=== PATIENT | female | born 2000 | race African-American/Black ===

== ENCOUNTER 2024-03-22 10:43 | Emergency (ER) | payer OTHER, SELFPAY ==
[2024-03-22 10:47] VITALS: BP 146/99; PULSE 106; TEMP 36.6; O2SAT 100; BMI 36.5
[2024-03-22] MEDS: ONDANSETRON PF 4 MG/2 ML VIAL IV (11:06)
[2024-03-22] MEDS: 0.9 % SODIUM CHLORIDE 1,000 ML 999 ML IV (11:06)
[2024-03-22] MEDS: KETOROLAC TROMETHAMINE 30 MG/ML VIAL 15 MG IVP (11:31)
[2024-03-22 12:01] VITALS: BP 149/83; PULSE 88; TEMP 36.8; O2SAT 98
--- NOTE | 2024-03-22 14:39 | ED.NAVMDI1 ---
HPI - Nausea/Vomiting/Diarrhea General Chief complaint: Nausea/Vomiting/Diarrhea Stated complaint: NAUSEA/VOMITING, DIARRHEA Time Seen by Provider: 03/22/24 11:05 Source: patient Mode of arrival: walk-in History of Present Illness HPI Narrative: Patient presented to us with nausea vomiting and diarrhea that started yesterday, patient has been exposed to her kids who had similar symptoms last week She denies any difficulty breathing , and she denies any cough or any fever Related Data Previous Rx's ?Medication ?Instructions ?Recorded ondansetron 4 mg disintegrating 4 mg PO Q8H PRN nausea and 03/22/24 tablet vomiting 3 days #10 tabs Allergies Allergy/AdvReac Type Severity Reaction Status Date / Time No Known Drug Allergies Allergy Verified 03/22/24 10:53 Review of Systems ROS Status of ROS 10 or more systems reviewed and unremarkable except as noted in history and below PFSH PFSH Social History Little interest or pleasure in doing things: not at all Feeling down, depressed, or hopeless: not at all Exam Narrative Exam Narrative: Nurses notes and vital signs reviewed and patient is not hypoxic. General: Well-appearing and in no apparent distress. Skin: Warm, dry, no pallor noted. No rash. Head: Normocephalic, atraumatic. Neck: Supple, non-tender. Eye: Pupils are equal, round and EOMI. No scleral icterus. Ears, Nose, Mouth, and Throat: TM are clear, no nasal mucosal hypertrophy. Oral mucosa is moist, no posterior oropharynx erythema, uvula is mid-line Cardiovascular: Regular Rate and Rhythm without murmur, gallop or rub. Respiratory: No accessory muscle use or respiratory distress. Lungs are clear to auscultation, no wheezing, rales or rhonchi Chest Wall: no tenderness Back: No midline thoracic or lumbar vertebral tenderness. No CVA tenderness Musculoskeletal: normal ROM, no calf or popliteal tenderness, no lower extremity edema/swelling GI: Abdomen is soft, non-distended. Normal bowel sounds. No masses appreciated. No tenderness to palpation. No rebound, guarding, or rigidity noted. Neurological: A&O x4. No cranial nerve dysfunction observed. No truncal ataxia. Moves all extremities. Sensation intact. Psychiatric: Cooperative and interactive. Normal mood and affect. Constitutional Vital Signs, click to edit/add: Last Vital Signs Temp 98.3 F 03/22/24 12:01 Pulse 88 03/22/24 12:01 Resp 18 03/22/24 12:01 BP 149/83 H 03/22/24 12:01 Pulse Ox 98 03/22/24 12:01 O2 Del Method Room Air 03/22/24 12:01 Course Vital Signs Vital signs: Vital Signs Temperature 98 F 03/22/24 10:47 Pulse Rate 106 H 03/22/24 10:47 Respiratory Rate 20 03/22/24 10:47 Blood Pressure 146/99 H 03/22/24 10:47 Pulse Oximetry 100 03/22/24 10:47 Oxygen Delivery Method Room Air 03/22/24 10:47 Temperature 98.3 F 03/22/24 12:01 Pulse Rate 88 03/22/24 12:01 Respiratory Rate 18 03/22/24 12:01 Blood Pressure 149/83 H 03/22/24 12:01 Pulse Oximetry 98 03/22/24 12:01 Oxygen Delivery Method Room Air 03/22/24 12:01 MDM - Nausea/Vomiting/Diarrhea MDM Narrative Medical decision making narrative: Patient provided with IV fluids in addition to Zofran and Toradol Discharged home with supportive care Patient presenting mostly with gastroenteritis likely secondary to viral illness The patient is to follow up with primary care physician in next 2-3 days or to return to the emergency department should any of the signs or symptoms worsen or new symptoms develop. The patient agrees with the following Diagnosis and Treatment plan and the patient will be discharged home. Discharge Plan Discharge Chief Complaint: Nausea/Vomiting/Diarrhea Clinical Impression: Gastroenteritis Patient Disposition: Home, Self-Care Time of Disposition Decision: 11:31 Condition: Good Prescriptions / Home Meds: New ondansetron 4 mg tablet,disintegrating 4 mg PO Q8H PRN (Reason: nausea and vomiting) 3 Days Qty: 10 0RF Print Language: Cymro Instructions: Gastroenteritis (DC) Referrals: Physician,Non-Staff, MD [Primary Care Provider] - 1 week Discharge Date/Time: 03/22/24 12:02
== END 2024-03-22 12:02 | disposition home or self-care (01) ==
PROVIDERS: Emergency Provider Emergency Medicine
DX: K52.9 Noninfective gastroenteritis and colitis, unspecified (principal)
CPT/HCPCS: 96361; 96374; 96375; 99284; J1885; J2405

== ENCOUNTER 2024-03-22 21:04 | Emergency (ER) | payer OTHER, SELFPAY ==
[2024-03-22] VITALS (16 sets, daily range): BP systolic 129–172; BP diastolic 75–112; PULSE 60–84; TEMP 37.3; O2SAT 94–100; BMI 36.5
--- OUTSIDE RECORDS SUMMARY | 2024-03-22 21:15 | XMS_ITS | CCD ---
Author Organization [facility] Care Team Providers Care Dock Operations Supervisor Name Role Phone Unallocated , Precious Provider Primary Care Provi hunter CORNELIUS DANIELSON Attending Unavailable CORNELIUS DANIELSON Attending Unavailable CORNELIUS DANIELSON Attending Unavailable CORNELIUS DANIELSON Referring Unavailable Medications Current Medications Medication Drug Class(es) Dates Sig (Normalized) Sig (Original) Levonorgestrel (6 sources) Progestin, Progestin-containing Intrauterine Device Start: 02-05-2024 Levonorgestrel (LILETTA, 52 MG, IU) by Intrauterine route 02/05/2024 Active Start: 02-05-2024 End: 02-05-2024 Levonorgestrel intrauterine device 52 mL Start: 02-05-2024 End: 02-05-2024 Once PRN Procedure, Starting on Sat02/05/24 at 1315, For 1 dose Problems Problem Classification Problem Date Documented Da te Episodic/Chronic Contraceptive and procreative management (5 sources) Patient encounter status; Translations: [Encounter for other general counseling and advice on contraception] 01-01-2024 Episodic Results Test Name Value Interpretation Reference Range Facil ity HCG ( test) Ql (U)o n 02-05-2024 Preg Test, Ur Negative Negative [facility]UD Insertionon 02-05-2024 Cornelius Danielson MD 02/05/2024 1:47 PM IUD Insertion Performed by: Cornelius Danielson MD Authorized by: Cornelius Danielson MD Procedure: IUD insertion risk: reasonably certain the patient is not Date/Time of Insertion: 02/05/2024 1:37 PM Speculum placed in vagina: yes Cervix cleaned and prepped: yes Tenaculum/Allis/Ring Forceps applied to cervix: yes Anesthesia used: no Uterus sound depth (cm): 8 Cervix manually dilated: no IUD inserted without complications: yes OSM: Levonorgestrel 20.1 MCG/DAY Patient tolerated procedure well: yes [facility] Signs Date Time Vital Sign Value Performing Clinician Garry donaldson 03-17-2024 14:41-0500 Body weight 105.23 kg Cornelius Danielson MD Work Phone: [facility] 03-17-2024 14:41-0500 Diastolic blood pressure 82 mm[Hg] Cornelius Danielson MD Work Phone: [facility] 03-17-2024 14:41-0500 Systolic blood pressure 124 mm[Hg] Cornelius Danieslon MD Work Phone: [facility] 02-05-2024 13:21-0500 Diastolic blood pressure 80 mm[Hg] Cornelius Danielson MD Work Phone: [facility] 02-05-2024 13:21-0500 Systolic blood pressure 138 mm[Hg] Cornelius Danielson MD Work Phone: [facility] 01-02-2024 11:48-0500 Body weight 109.32 kg Cornelius Danielson MD Work Phone: [facility] 01-02-2024 11:48-0500 Diastolic blood pressure 86 mm[Hg] Cornelius Danielson MD Work Phone: [facility] 01-02-2024 11:48-0500 Systolic blood pressure 124 mm[Hg] Cornelius Danielson MD Work Phone: [facility] Healthcare Encounters Encounter Date Encounter Type Care Provider Facility Start: 03-17-2024 End: 03-17-2024 Office outpatient visit 15 minutes Cornelius Danielson MD Work Phone: [facility] Comment on above: Intrauterine device surveillance Start: 03-17-2024 End: 03-17-2024 ambulatory CORNELIUS DANIELSON Not Available Start: 03-17-2024 End: 03-17-2024 Bamboo flowsheet Cornelius Danielson MD Work Phone: [facility] Start: 03-17-2024 End: 03-17-2024 Bamboo flowsgrant Danielson MD Work Phone: [facility] Start: 02-05-2024 End: 02-05-2024 ambulatory CORNELIUS DANIELSON Not Available Start: 02-05-2024 End: 02-05-2024 Patient encounter procedure Cornelius Danielson MD Work Phone: [facility] Comment on above: Encounter for IUD in sertion Start: 01-23-2024 End: 01-23-2024 Telephone encounter Cornelius Danielson MD Work Phone: [facility] Start: 01-02-2024 End: 01-02-2024 Bamboo rosalinda Danielson MD Work Phone: [facility] Start: 01-02-2024 End: 01-02-2024 Derik Danielson MD Work Phone: [facility] Start: 01-02-2024 End: 01-02-2024 ambulatory CORNELIUS DANIELSON Not Available Start: 01-02-2024 End: 01-02-2024 Initial preventive medicine new pt age 18-39yrs Cornelius Danielson MD Work Phone: [facility] Comment on above: Well woman exam with routine gynecological exam; control counseling Start: 01-02-2024 End: 01-02-2024 Patient encounter procedure Cornelius Danielson MD Work Phone: [facility] Healthcare Procedures Date Procedure Procedure Detail Performing Clinician Start: 02-05-2024 Urine test visual color cmprsn meths Cornelius Danielson MD Work Phone: Start: 02-05-2024 IUD INSERTION Cornelius sarkar MD Work Phone: Plan of Treatment Date Care Activity Detail Author Start: 03-17-2024 End: 03-17-2024 Patient encounter procedure [facility] Comment on above: Intrauterine device surveillance Start: 02-05-2024 End: 02-05-2024 Patient encounter procedure 02/05/2024 1:15 PM EST Procedure Visit [facility] [address] [place] [address] Cornelius Danielson MD [address] [facility] [address] [address] [place] [address] [facility] Start: 01-23-2024 End: 01-23-2024 Patient encounter procedure 01/23/2024 1:15 PM EST Procedure Visit [facility] [address] [place] [id number] Cornelius Danielson MD [address] [facility] [address] [place] [address] [facility] Start: 10-20-2023 Influenza vaccination Influenza Vacc ine (#1) [facility] Healthcare Payers Date Payer Category Payer Private Health Insurance [id number] 2023 Private Health Insurance [id number] 2001 Unknown [id number] 2001 Unknown [id number] 2001 Unknown [id number] Social History Date Type Detail Facility Start: 01-02-2024 Tobacco smoking stat [facility] Never smoked tobacco [facility] Start: 01-02-2024 Tobacco use and exposure Smoke less tobacco non-user [facility] Start: 01-02-2024 End: 03-17-2024 Alcoholic beverage intake Ex-drinker (finding) [facility] Start: 01-02-2024 End: 03-17-2024 History of Social function [facility] Start: 01-02-2024 End: 03-17-2024 Tobacco use panel [facility] Start: 2000 Sex assigned at Not on file [facility] Clinical Notes 01-02-2024 to 03-17-2024 Cornelius Danielson MD - 03/17/2024 2:30 PM Mychal Ivory MA - 02/05/2024 1:15 PM Steven Danielson MD - 02/05/2024 1:15 PM ESTTelephone Encounter - Blanca Ayers - 01/23/2024 2:27 PM EST Note Date & Type Note Facility 03-17-2024 History of Presen t illness Narrative Images from the original note were not included. Cornelius Danielson MD Obstetrics and Gynecology Patient: Trevor Funk, : 2000 (24 y.o.) DOS 03/17/24 Exam Date: 03/17/2024 HPI: Pleased with IUD. No issues. She requests the string be trimmed as her partner can feel it Visit Vitals BP 124/82 Wt 232 lb LMP 02/23/2024 OB Status Having periods Smoking Status Never OB History Para Term AB Living 5 3 3 0 0 3 SAB IAB Ectopic Multiple Live Births 0 0 0 0 3 # Outcome Date GA Lbr Gary/2nd Weight Sex Type Anes PTL Lv 5 4 3 Term 2 Term 1 Term Obstetric Comments Pap: Up to date/no abnormal Liletta IUD-02/10; every month, normal blood loss, LMP: 02/23/24 Medication and Allergies Medication Documentation Review Audit Reviewed by Blanca Ivory MA (Bun Panner) on 03/17/24 at 1444 Medication Order Taking? Sig Documenting Provider Last Dose Status Levonorgestrel (LILETTA, 52 MG, IU) [id number] by Intrauterine route Cornelius Danielson MD Active No Known Allergies History reviewed. No pertinent past medical history. Past Surgical History: Procedure Laterality Date VAGINAL DELIVERY x3 Physical Exam: Objective Physical Exam Constitutional: Appearance: Normal appearance. Genitourinary: Vulva normal. No vaginal discharge or bleeding. No cervical lesion. IUD strings visualized. Cervical exam comments: IUD string trimmed at the ext os. Pulmonary: Effort: Pulmonary effort is normal. Abdominal: Palpations: Abdomen is soft. Neurological: Mental Status: She is alert. Associated Treatments and Results - ICD-10-CM 1. Intrauterine device surveillance Z30.431 Assessment/Plan No orders of the defined types were placed in this encounter. documented in this encounter [facility] 02-05-2024 History of Presen t illness Narrative Associated Order(s): IUD Insertion Post-Procedure Diagnose(s): Encounter for IUD insertion Images from the original note were not included. Patient ID: Trevor Calderon is a 23 y.o. female. IUD Insertion Performed by: Cornelius Danielson MD Authorized by: Cornelius Danielson MD Procedure: IUD insertion OSM: 52 mL Levonorgestrel 20.1 MCG/DAY Associated Order(s): IUD Insertion Post-Procedure Diagnose(s): Encounter for IUD insertion Images from the original note were not included. Patient ID: Trevor Calderon is a 23 y.o. female. IUD Insertion Performed by: Cornelius Danielson MD Authorized by: Cornelius Danielson MD Procedure: IUD insertion risk: reasonably certain the patient is not Date/Time of Insertion: 02/05/2024 1:37 PM Speculum placed in vagina: yes Cervix cleaned and prepped: yes Tenaculum/Allis/Ring Forceps applied to cervix: yes Anesthesia used: no Uterus sound depth (cm): 8 Cervix manually dilated: no IUD inserted without complications: yes OSM: Levonorgestrel 20.1 MCG/DAY Patient tolerated procedure well: yes Intended removal date: 8 years documented in this encounter [facility] 01-23-2024 Telephone encount er Note Pt called in upset that her appointment had to be rescheduled with [facility] because she came in over 30 minutes late today and wanted first available appointment with any provider for IUD insertion. I rescheduled for 02/05/24 with [facility] but she said she was going to call the [place] office to see if they have anything sooner. [facility] 01-23-2024 Miscellaneous Notes Formattin g of this note might be different from the original. Pt called in upset that her appointment had to be rescheduled with [facility] because she came in over 30 minutes late today and wanted first available appointment with any provider for IUD insertion. I rescheduled for 02/05/24 with [facility] but she said she was going to call the [place] office to see if they have anything sooner. documented in this encounter [facility] 01-02-2024 History of Presen t illness Narrative Images from the original note were not included. Cornelius Danielson MD Obstetrics and Gynecology Patient: Trevor Calderon, : 2000 (23 y.o.) DOS 01/02/24 Exam Date: 01/02/2024 HPI: Establishing care. She moved here from [place]. She is 2 mos PP from term . She wants to get an IUD Visit Vitals BP 124/86 Wt 241 lb LMP 12/23/2023 OB Status Having periods Smoking Status Never OB History Para Term AB Living 5 3 3 0 0 3 SAB IAB Ectopic Multiple Live Births 0 0 0 0 3 # Outcome Date GA Lbr Gary/2nd Weight Sex Type Anes PTL Lv 5 4 3 Term 2 Term 1 Term Obstetric Comments Pap: Up to date/no abnormal No control; every month, normal blood loss, LMP: 12/23/23 Medication and Allergies Medication Documentation Review Audit Reviewed by Blanca Ivory MA (Bun Panner) on 01/02/24 at 1150 Medication Order Taking? Sig Documenting Provider Last Dose Status No Medications to Display No Known Allergies History reviewed. No pertinent past medical history. Past Surgical History: Procedure Laterality Date VAGINAL DELIVERY x3 Physical Exam: Objective Physical Exam Constitutional: Appearance: Normal appearance. Genitourinary: Vulva normal. No vaginal discharge or bleeding. Right Adnexa: not palpable. Left Adnexa: not palpable. No cervical lesion. Uterus is not enlarged or tender. Breasts: Right: Normal. Left: Normal. Pulmonary: Effort: Pulmonary effort is normal. Abdominal: Palpations: Abdomen is soft. Neurological: Mental Status: She is alert. Associated Treatments and Results - ICD-10-CM 1. Well woman exam with routine gynecological exam Z01.419 2. control counseling Z30.09 Assessment/Plan No orders of the defined types were placed in this encounter. documented in this encounter [facility] 01-02-2024 Miscellaneous Notes Addended by: CORNELIUS DANIELSON on: 01/02/2024 12:06 PM Modules accepted: Level of Service documented in this encounter [facility] 01-02-2024 Note Addended by: CORNELIUS DANIELSON on: 01/02/2024 12:06 PM Modules accepted: Level of Service [facility] 01-02-2024 Note Addended by: CORNELIUS DANIELSON on: 01/02/2024 12:06 PM Modules accepted: Level of Service [facility] Evaluation note Diagnosis Well woman exam with routine gynecological exam Routine gynecological examination control counseling documented in this encounter [facility] HealthcareEvaluation note* Diagnosis Encounter for IUD insertion Insertion of intrauterine contraceptive device documented in this encounter [facility] Healthcare[facility] note* Diagnosis Intrauterine device surveillance documented in this encounter [facility] HealthcareReason for visit Narrative* OBGYN (Routine) - Closed Specialty Diagnoses / Procedures Referred By Contac t Referred To Contact Obstetrics and Gynecology Diagnoses Encounter for insertion of intrauterine contraceptive device Procedures MA LEVONORGESTREL IU 52MG 8 YR MA INSERTION INTRAUTERINE DEVICE IUD Cornelius Danielson MD [address] [facility] [address] [place] [address] Phone: tel: fax: Cornelius Danielson MD [address] [facility] [address] [place] [address] Phone: tel: fax: Referral ID Status Reason Start Date Expiration Date V isits Requested Visits Authorized [id number] Closed Perform Procedure 01/02/2024 06/30/2024 1 1 [facility] Summary Purpose Family History No Family History Records Found Advance Directives No Advanced Directives Records Found Additional Source Comments Care Teams (unrecognized sec tion and content) Dock Operations Supervisor Relationship Specialty Start Date End Date Unallocated, Precious Marie MD [address] [place] [address] PCP - General Family Medicine 01/02/24 Dock Operations Supervisor Relationship Specialty Start Date End Date Unallocated, Precious Marie MD [address] [facility] [address] PCP - General Family Medicine 01/02/24 Dock Operations Supervisor Relationship Specialty Start Date End Date Unallocated, Precious Marie MD [address] [facility] [place] [address] PCP - General Family Medicine 01/02/24 Dock Operations Supervisor Relationship Specialty Start Date End Date Unallocated, Precious Marie MD [address] [facility] [place] [address] PCP - General Family Medicine 01/02/24 INFORMATION SOURCE (unrecogn ized section and content) DATE CREATED AUTHOR 03/19/2024 [facility] EPIC FOR RECORDS PERTAINING TO PATIENTS WHO ARE OR HAVE BEEN ENROLLED IN A CHEMICAL DEPENDENCY/SUBSTANCEABUSE PROGRAM, SOME INFORMATION MAY BE OMITTED. This clinical summary was aggregated from multiple sources. Caution should be exercised in using it in the provision of clinical care. This summary normalizes information from multiple sources, and as a consequence, information in this document may materially change the coding, format and clinical context of patient data. In addition, data may be omitted in some cases. CLINICAL DECISIONS SHOULD BE BASED ON THE PRIMARY CLINICAL RECORDS. [employer] provides no warranty or guarantee of the accuracy or completeness of information in this document.
--- NOTE | 2024-03-22 21:25 | CT_ITS ---
The [address] [address] Patient Name: TREVOR HARRIS MRN: [id number] date: 2000 Sex: F Assigned Patient Location: ER Current Patient Location: ER Accession/Order Number: [id number] Exam Date: 03/22/2024 22:35 Report Date: 03/22/2024 23:47 At the request of: CONSTANTIN SANZ Procedure: CT abdomen pelvis w con EXAM: CT abdomen pelvis w con HISTORY: 10/28 intractable pain COMPARISON: None. TECHNIQUE: Axial CT images through the abdomen and pelvis were obtained after the intravenous administration of contrast. Coronal and sagittal reformats were obtained. Dose reduction techniques were achieved by using automated exposure control and/or adjustment of mA and/or kV according to patient size and/or use of iterative reconstruction technique. FINDINGS: The visualized portions of the lung bases are clear. Abdomen: The liver and spleen enhance homogeneously without focal lesion. There is no intra or extrahepatic biliary duct dilatation. There is cholelithiasis without evidence of acute inflammation. The pancreas, adrenal glands, kidneys, and bowel loops, including the appendix, are unremarkable. There is no mesenteric or retroperitoneal lymphadenopathy. Pelvis: The bladder demonstrates wall thickening. The rectum is unremarkable. There is no iliac or inguinal lymphadenopathy. An IUD is in place. There are suspected small ovarian follicles. Bone windows show no aggressive osseous lesions. There is sclerosis about the sacroiliac joints with some erosive changes. CT/CT abdomen pelvis w con IMPRESSION: 1. Cholelithiasis without evidence of acute inflammation. 2. Normal appendix. 3. Urinary bladder wall thickening. Please correlate with urinalysis for infection. 4. An IUD is in place. 5. Sclerosis about the sacroiliac joints with some erosive changes. Please correlate for an infectious or inflammatory sacroiliitis. Electronically authenticated by: Magdi PATEL Date: 03/22/2024 23:47
[2024-03-22] MEDS: 0.9 % SODIUM CHLORIDE 1,000 ML 1000 ML IV (21:58)
[2024-03-22] MEDS: KETOROLAC TROMETHAMINE 30 MG/ML VIAL 15 MG IVP (21:59)
[2024-03-22] MEDS: DICYCLOMINE HCL 20 MG/2 ML VIAL IM (21:59)
[2024-03-22] MEDS: ONDANSETRON PF 4 MG/2 ML VIAL IV (22:06)
[2024-03-22 22:14] LABS: Alanine Aminotransferase 20 U/L (14-59); Albumin Globulin Ratio 0.8; Albumin Level 3.3 g/dL (3.4-5.0); Alkaline Phosphatase 88 U/L (46-116); Anion Gap 11.5; Aspartate Amino Transferase 17 U/L (15-37); BUN Creatinine Ratio 8.8; Bilirubin Total 0.4 mg/dL (0.2-1.0); Calcium 8.7 mg/dL (8.5-10.1); Carbon Dioxide 26.9 mmol/L (21.0-32.0); Chloride 101 mmol/L (98-107); Estimated GFR (African America >60 (>=60 mL/min/1.73m^2); Estimated GFR (Non-African Ame 53 (>=60 mL/min/1.73m^2); Globulin 4.3 g/dL; Glucose 111 mg/dL (74-106); Magnesium 1.8 mg/dL (1.8-2.4); Potassium 3.4 mmol/L (3.5-5.1); Sodium 136 mmol/L (136-145); Total Protein 7.6 g/dL (6.4-8.2)
[2024-03-23] VITALS: BP 135/76; O2SAT 92
--- NOTE | 2024-03-23 00:02 | ED.ABDPAIN1 ---
HPI - Abdominal Pain General Chief Complaint: Abdominal Pain Stated Complaint: STOMACH PAIN Time Seen by Provider: 03/22/24 21:10 Source: patient Mode of arrival: walk-in Limitations: no limitations History of Present Illness HPI narrative: The patient is an otherwise healthy 24-year-old female presenting to the emergency department for abdominal pain. The patient's symptoms today entail that she has nausea, vomiting, and diarrhea. Her symptoms started a couple days ago. They have abruptly gotten worse. She is experiencing 10 out of 10 abdominal pain. Is located primarily in the bilateral upper quadrants of the abdomen. It does not radiate or move anywhere. Eating or drinking make it worse. Nothing makes it better. She states that she tried Zofran ODT which she was prescribed earlier today when she came to the emergency department but that is not helping her. She has intractable nausea and vomiting. There is no blood or bile in her vomit. There is no blood or mucus in her stools. Patient's not had any recent antibiotic therapy. No trauma to her abdomen. Patient has no known history of gallbladder problems. She does not have any problems eating fatty foods. Patient does not have any right lower quadrant tenderness. Patient does not have any suprapubic tenderness. She does not have any dysuria, hematuria, urgency or frequency. No known history of pancreatitis. She does not take Wegovy, Mounjaro, or any weight loss medications. Patient does not have a history of using marijuana. Patient's children have had similar symptoms last week. She denies any fever or chills. No travel. Related Data Patient : No Previous Rx's ?Medication ?Instructions ?Recorded ondansetron 4 mg disintegrating 4 mg PO Q8H PRN nausea and 03/22/24 tablet vomiting 3 days #10 tabs dicyclomine 20 mg tablet 20 mg PO QID PRN abdominal pain 03/23/24 #10 tabs Allergies Allergy/AdvReac Type Severity Reaction Status Date / Time No Known Drug Allergies Allergy Verified 03/22/24 21:07 Review of Systems ROS Status of ROS 10 or more systems reviewed and unremarkable except as noted in history and below PFSH PFS Social History Little interest or pleasure in doing things: not at all Feeling down, depressed, or hopeless: not at all Exam Narrative Exam Narrative: Prior to examining the patient, I have washed with hospital approved and provided Antiseptic Hand Quality Control Clerk and have also applied gloves.? Prior to touching the patient, I asked for consent to examine the patient.? General: Alert and oriented, well nourished, mild distress. Eye: PERRL, EOMI, normal conjunctiva. HENT: Normocephalic, normal hearing, moist oral mucosa, no scleral icterus, no sinus tenderness. Neck: Supple, non-tender, no carotid bruits, no JVD, no lymphadenopathy. Lungs: Clear to auscultation and percussion, non-labored respiration. Heart: Normal rate, regular rhythm, no murmur, gallop or edema. Abdomen: Soft, generalized upper abdominal tenderness. She has got voluntary guarding. No rebound tenderness., non-distended, normal bowel sounds, no masses. Musculoskeletal: Normal range of motion and strength, no tenderness or swelling. Skin: Skin is warm, dry and pink, no rashes or lesions. Neurologic: Awake, alert, and oriented X3, CN II-XII intact. Psychiatric: Cooperative, appropriate mood and affect.? Following the conclusion of the examination, I have washed my hands thoroughly after removing examination gloves. Constitutional Vital Signs, click to edit/add: Last Vital Signs Temp 99.3 F 03/23/24 00:20 Pulse 60 03/22/24 23:02 Resp 17 03/22/24 23:02 BP 135/76 03/23/24 00:00 Pulse Ox 94 L 03/23/24 00:10 O2 Del Method Room Air 03/22/24 21:07 Course Course Hospital Course: When I assessed the patient the patient is laying on the cot and not really interactive. I told the patient I was going to draw some blood and check her electrolyte panel. Working to give her intervenous fluids and intravenous antibiotic therapy and see if we can get her more comfortable. Since this is her second time to the emergency department no imaging was done the first time we did elect to do imaging. The imaging was unremarkable. Patient is aware that she has a gallstone but that is not the etiology of her discomfort today. Reevaluation(s) Reevaluation #1: The patient was reassessed. She is resting comfortably in the right lateral recumbent position. She easily awakens. She appears nontoxic and in no acute distress. Her nausea has completely resolved and she currently has no pain. We discussed having a brat diet and using nausea meds and abdominal cramping medications as needed sparingly. She is to return if she has a fever or is unable to hold down any food or fluids. Time: 00:04 Vital Signs Vital signs: Vital Signs Temperature 99.1 F 03/22/24 21:07 Pulse Rate 84 03/22/24 21:07 Respiratory Rate 22 H 03/22/24 21:07 Blood Pressure 172/112 H 03/22/24 21:07 Pulse Oximetry 100 03/22/24 21:07 Oxygen Delivery Method Room Air 03/22/24 21:07 Temperature 99.3 F 03/23/24 00:20 Pulse Rate 60 03/22/24 23:02 Respiratory Rate 17 03/22/24 23:02 Blood Pressure 135/76 03/23/24 00:00 Pulse Oximetry 94 L 03/23/24 00:10 Oxygen Delivery Method Room Air 03/22/24 21:07 MDM - Abdominal Pain MDM Narrative Medical decision making narrative: The patient is a 24-year-old female presenting to the emergency department for the second time in 24 hours complaining of nausea, vomiting, and diarrhea. Patient is having intractable nausea and vomiting despite being in the emergency department and obtaining an outpatient prescription for Zofran. She states as soon as she put it in her mouth she immediately started to vomit. When the pain got so intense she was unable to be comfortable that it urgency apartment for evaluation. Differential Diagnosis Differential diagnosis: Likely abdominal pain, acute appendicitis, constipation, diverticulitis, gastroenteritis and small bowel obstruction Medical Records Attestation: I reviewed the patient's medical records. Lab Data Attestation: I reviewed the patient's lab results. Labs: Lab Results 03/22/24 Range/Units 21:48 Sodium 136 (136-145) mmol/L Potassium 3.4 L (3.5-5.1) mmol/L Chloride 101 (98-107) mmol/L Carbon Dioxide 26.9 (21.0-32.0) mmol/L Anion Gap 11.5 BUN 11.0 (7.0-18.0) mg/dL Creatinine 1.25 H (0.55-1.02) mg/dL Est GFR ( Amer) >60 (>=60 mL/min/1.73m^2) Est GFR (Non-Af Amer) 53 L (>=60 mL/min/1.73m^2) BUN/Creatinine Ratio 8.8 Glucose 111 H (74-106) mg/dL Calcium 8.7 (8.5-10.1) mg/dL Magnesium 1.8 (1.8-2.4) mg/dL Total Bilirubin 0.4 (0.2-1.0) mg/dL AST 17 (15-37) U/L ALT 20 (14-59) U/L Alkaline Phosphatase 88 (46-116) U/L Total Protein 7.6 (6.4-8.2) g/dL Albumin 3.3 L (3.4-5.0) g/dL Globulin 4.3 g/dL Albumin/Globulin Ratio 0.8 Lipase 22.0 (16.0-77.0) U/L Imaging Data CT scan - abdomen: Attestation: I have reviewed the pertinent imaging results. Radiologist's impression: ITS Impressions Abdomen/Pelvis CT 03/22/24 21:25 IMPRESSION: 1. Cholelithiasis without evidence of acute inflammation. 2. Normal appendix. 3. Urinary bladder wall thickening. Please correlate with urinalysis for infection. 4. An IUD is in place. 5. Sclerosis about the sacroiliac joints with some erosive changes. Please correlate for an infectious or inflammatory sacroiliitis. Electronically authenticated by: Magdi PATEL Date: 03/22/2024 23:47 Discharge Plan Discharge Chief Complaint: Abdominal Pain Clinical Impression: Abdominal pain, Cholelithiasis Patient Disposition: Home, Self-Care Time of Disposition Decision: 00:05 Condition: Good Mode of Transportation: Private Vehicle Prescriptions / Home Meds: New dicyclomine 20 mg tablet 20 mg PO QID PRN (Reason: abdominal pain) Qty: 10 0RF No Action ondansetron 4 mg tablet,disintegrating 4 mg PO Q8H PRN (Reason: nausea and vomiting) 3 Days Qty: 10 0RF Print Language: Mohawk Instructions: Gallstones (ED), Acute Nausea and Vomiting (ED), Abdominal Pain (ED) Additional Instructions: Thank you for trusting me with your care today. Please take your nausea medications as you need. Please take the dicyclomine as needed for abdominal pain. Please continue to push fluids. I would like for you to be on a clear liquid diet for the next 24 hours and then gradually increase as tolerated. No solid foods for the next 24 hours, this includes crackers and toast. Just lots of fluids and broths at this time. Gradually advance as tolerated in 24 hours. You do have evidence of a gallstone in your gallbladder. It is not causing you any discomfort or problems at this time. We just incidentally found it on your scan. If fatty foods to begin to bother you have distinct pain in her right upper quadrant then please return to the emergency department for further evaluation and care. Referrals: Physician,Non-Staff, [Primary Care Provider] - 1 week Discharge Date/Time: 03/23/24 00:29
[2024-03-23 00:10] VITALS: O2SAT 94
[2024-03-23 00:20] VITALS: TEMP 37.4
--- NOTE | 2024-03-23 00:27 | PC.NURSE ---
i valentina ethilibra patient verbal and written discharge orders along with 1 e-script, and this patient voices yes to understanding these. at time of discharge this patient voices no concerns and shows no signs of distress
== END 2024-03-23 00:29 | disposition home or self-care (01) ==
PROVIDERS: Emergency Provider Emergency Medicine
DX: R10.9 Unspecified abdominal pain (principal); K80.20 Calculus of gallbladder without cholecystitis without obstruction; K52.9 Noninfective gastroenteritis and colitis, unspecified; Z97.5 Presence of (intrauterine) contraceptive device
CPT/HCPCS: 36415; 74177; 80053; 83690; 83735; 96361; 96372; 96374; 96375; 99284; J0500; J1885; J2405; Q9967

== ENCOUNTER 2024-03-24 07:13 | Emergency (ER) | payer OTHER, SELFPAY ==
[2024-03-24 07:17] VITALS: PULSE 93; TEMP 36.9; O2SAT 96; BMI 36.5
--- OUTSIDE RECORDS SUMMARY | 2024-03-24 07:19 | XMS_ITS | CCD ---
Author Organization [facility] Care Team Providers Care Pot Tender Name Role Phone Unallocated , Precious Provider [...] n 02-05-2024 Preg Test, Ur Negative Negative [facility] 02-05-2024 Cornelius [...] well: yes Intended [facility] date[facility] Vital Signs Date Time Vital Sign Value Performing Clinician Garry donaldson 03-17-2024 14:41-0500 Body weight 105.23 kg Cornelius Danielson MD Work Phone: [facility] 03-17-2024 14:41-0500 Diastolic blood pressure 82 mm[Hg] Cornelius Danielson MD Work Phone: [facility] 03-17-2024 14:41-0500 Systolic blood pressure 124 mm[Hg] Cornelius Danielson MD Work Phone: [facility] 02-05-2024 13:21-0500 Diastolic blood pressure 80 mm[Hg] Cornelius Danielson MD Work Phone: [facility] 02-05-2024 13:21-0500 Systolic blood pressure 138 mm[Hg] Cornelius Danielson MD Work Phone: [facility] 01-02-2024 11:48-0500 Body weight 109.32 kg Cornelius Danielson MD Work Phone: [facility] 01-02-2024 11:48-0500 Diastolic blood pressure 86 mm[Hg] Cornelius Danielson MD Work Phone: [facility] 01-02-2024 11:48-0500 Systolic blood pressure 124 mm[Hg] Cornelius Danielson MD Work Phone: [facility] Encounters Encounter Date Encounter Type Care Provider Facility Start: 03-17-2024 End: 03-17-2024 Office outpatient visit 15 minutes Cornelius Danielson MD Work Phone: [facility] Comment on above: Intrauterine device surveillance Start: 03-17-2024 End: 03-17-2024 ambulatory CORNELIUS DANIELSON Not Available Start: 03-17-2024 End: 03-17-2024 Bamboo flowsheet Cornelius Danielson MD Work Phone: [facility] Start: 03-17-2024 End: 03-17-2024 Bamboo flowsgrant [...] encounter procedure Cornelius Danielson MD Work Phone: [facility] Procedures Date Procedure Procedure Detail Performing [...] [address] [place] [address] Cornelius Danielson MD [address] [address] [place] [address] [facility] Start: 01-23-2024 End: 01-23-2024 Patient encounter procedure 01/23/2024 1:15 PM EST Procedure Visit [facility] [address] [place] [id number] Cornelius Danielson MD [address] [facility] [address] [place] [address] [facility] Start: 10-20-2023 Influenza vaccination Influenza Vacc ine (#1) [facility] Healthcare Payers Date Payer Category Payer Private Health Insurance [id number] 2023 Private Health Insurance [id number] 2001 Unknown [id number] 2001 Unknown [id number] 2001 Unknown [id number] Social History Date Type Detail Facility Start: 01-02-2024 Tobacco smoking stat [facility] Never smoked tobacco [facility] Start: 01-02-2024 Tobacco use and exposure Smoke less tobacco non-user [facility] Start: 01-02-2024 End: 03-17-2024 Alcoholic beverage intake Ex-drinker (finding) [facility] Start: 01-02-2024 End: 03-17-2024 History of Social function [facility] Start: 01-02-2024 End: 03-17-2024 Tobacco use panel [facility] Start: 2000 Sex assigned at Not on file [facility] Clinical Notes 01-02-2024 to 03-17-2024 Cornelius [...] Review Audit Reviewed by Blanca Ivory MA ([employer]) on 03/17/24 at 1444 Medication Order Taking? Sig Documenting Provider Last Dose Status Levonorgestrel (LILETTA, 52 MG, IU) [id number] by Intrauterine route Cornelius Danielson MD Active [...] in this encounter. documented in this encounter [facility] 02-05-2024 History of Presen t [...] date: 8 years documented in this encounter [facility] 01-23-2024 Telephone encount er Note Pt called in upset that her appointment had to be rescheduled with [facility] because she came in over 30 minutes late today and wanted first available appointment with any provider for IUD insertion. I rescheduled for 02/05/24 with [facility] but she said she was going to call the [place] office to see if they have anything sooner. [facility] 01-23-2024 Miscellaneous Notes Formattin g [...] said she was going to call the [place] office to see if they have anything sooner. documented in this encounter [facility] 01-02-2024 History of Presen t illness Narrative Images from the original note were not included. Cornelius Danielson MD Obstetrics and Gynecology Patient: Trevor Calderon, : 2000 (23 y.o.) DOS 01/02/24 Exam Date: 01/02/2024 HPI: Establishing care. She moved here from [place]. She is 2 mos PP from term [...] Review Audit Reviewed by Blanca Ivory MA ([employer]) on 01/02/24 at 1150 Medication Order Taking? [...] in this encounter. documented in this encounter [facility] 01-02-2024 Miscellaneous Notes Addended by: CORNELIUS DANIELSON on: 01/02/2024 12:06 PM Modules accepted: Level of Service documented in this encounter [facility] 01-02-2024 Note Addended by: CORNELIUS DANIELSON on: 01/02/2024 12:06 PM Modules accepted: Level of Service [facility] 01-02-2024 Note Addended by: CORNELIUS DANIELSON on: 01/02/2024 12:06 PM Modules accepted: Level of Service [facility] Evaluation note Diagnosis Well woman exam with routine gynecological exam Routine gynecological examination control counseling documented in this encounter [facility] HealthcareEvaluation note* Diagnosis Encounter for IUD insertion Insertion of intrauterine contraceptive device documented in this encounter [facility] HealthcareEvaluation note* Diagnosis Intrauterine device surveillance documented in this encounter [facility] HealthcareReason for visit Narrative* OBGYN (Routine) - Closed Specialty Diagnoses / Procedures Referred By Contac t Referred To Contact Obstetrics and Gynecology Diagnoses Encounter for insertion of intrauterine contraceptive device Procedures MN LEVONORGESTREL IU 52MG 8 YR MN INSERTION INTRAUTERINE DEVICE IUD Cornelius Danielson MD [address] [facility] [address] [place] [address] Phone: tel: fax: Cornelius Danielson MD [address] [facility] [address] [place] [address] Phone: tel: fax: Referral ID Status Reason Start Date Expiration Date V isits Requested Visits Authorized [id number] Closed Perform Procedure 01/02/2024 06/30/2024 1 1 [facility] Summary Purpose Family History No Family History Records Found Advance Directives No Advanced Directives Records Found Additional Source Comments Care Teams (unrecognized sec tion and content) Pot Tender Relationship Specialty Start Date End Date Unallocated, Precious Marie MD [address] [place] [address] PCP - General Family Medicine 01/02/24 Pot Tender Relationship Specialty Start Date End Date Unallocated, Precious Marie MD [address] [place] [address] PCP - General Family Medicine 01/02/24 Pot Tender Relationship Specialty Start Date End Date Unallocated, Precious Marie MD [address] [place] [address] PCP - General Family Medicine 01/02/24 Pot Tender Relationship Specialty Start Date End Date Unallocated, Precious Marie MD [address] [place] [address] PCP - General Family Medicine 01/02/24 INFORMATION SOURCE (unrecogn ized section and content) DATE CREATED AUTHOR 03/19/2024 [facility] EPIC FOR RECORDS PERTAINING TO [...] BE BASED ON THE PRIMARY CLINICAL RECORDS. [employer]. provides no warranty or guarantee of the accuracy or completeness of information in this document.
--- NOTE | 2024-03-24 07:33 | XR_ITS ---
The [address] [address] Patient Name: TREVOR HARRIS MRN: [id number] date: 2000 Sex: F Assigned Patient Location: ER Current Patient Location: ER Accession/Order Number: [id number] Exam Date: 03/24/2024 07:52 Report Date: 03/24/2024 08:11 At the request of: BRIGID EMERSON Procedure: XR chest 1V EXAM: XR chest 1V HISTORY: cough COMPARISON: None. TECHNIQUE: AP erect portable chest radiograph performed. FINDINGS: The trachea is midline. The cardiomediastinal silhouette and hilar shadows are normal. There is no consolidation, pleural effusion or pulmonary vascular congestion. There is no pneumothorax. The osseous structures are unremarkable. XR/XR chest 1V IMPRESSION: Unremarkable AP erect portable chest radiograph. Electronically authenticated by: SVETLANA MACDONALD Date: 03/24/2024 08:11
--- NOTE | 2024-03-24 07:34 | ED.GENADUL1 ---
HPI HPI - General Adult General Chief complaint: Nausea/Vomiting/Diarrhea Stated complaint: COUGH, VOMITING, DIARRHEA Time Seen by Provider: 03/24/24 07:24 Source: patient Mode of arrival: walk-in Limitations: no limitations History of Present Illness HPI narrative: 24-year-old female presents to the emergency department for cough and nausea and vomiting. This is her third consecutive day she has been in this emergency department for these issues. On her last visit she had a CAT scan that showed a gallstone but otherwise negative. She has been coughing up some green phlegm. Her kids were sick last week and they have recovered. Related Data Previous Rx's ?Medication ?Instructions ?Recorded ondansetron 4 mg disintegrating 4 mg PO Q8H PRN nausea and 03/22/24 tablet vomiting 3 days #10 tabs dicyclomine 20 mg tablet 20 mg PO QID PRN abdominal pain 03/23/24 #10 tabs Allergies Allergy/AdvReac Type Severity Reaction Status Date / Time No Known Drug Allergies Allergy Verified 03/24/24 07:17 Opioid HPI Opioid Management Most Recent Opioid Data: Last Pain Scale 9 03/22/24 21:40 03/22/24 Review of Systems ROS Narrative A ten point review of systems is negative except as noted above. PFSH PFSH Social History Little interest or pleasure in doing things: not at all Feeling down, depressed, or hopeless: not at all Exam Narrative Exam Narrative: Nurses note and vital signs reviewed and patient is not hypoxic. General: The patient appears uncomfortable and in no apparent distress. Skin: Warm, dry, no pallor noted. There is no rash noted. Head: Normocephalic, atraumatic Eye: Normal conjunctiva, no drainage Ears, Nose, Mouth, and Throat: oral mucosa is moist. Nares patent. Cardiovascular: Regular Rate and Rhythm Respiratory: Patient is in no distress, no accessory muscle use, lungs are clear to auscultation, no wheezing, rales or rhonchi Back: non-tender GI: Soft and nontender Musculoskeletal: The patient has no evidence of calf tenderness, no pitting edema, symmetrical pulses noted bilaterally Neurological: A&O, normal speech Psychiatric: Cooperative Constitutional Vital Signs, click to edit/add: Last Vital Signs Temp 98.4 F 03/24/24 07:17 Pulse 93 H 03/24/24 07:17 Resp 28 H 03/24/24 07:17 BP 140/82 03/24/24 07:38 Pulse Ox 96 03/24/24 08:00 O2 Del Method Room Air 03/24/24 08:00 Course Vital Signs Vital signs: Vital Signs Temperature 98.4 F 03/24/24 07:17 Pulse Rate 93 H 03/24/24 07:17 Respiratory Rate 28 H 03/24/24 07:17 Pulse Oximetry 96 03/24/24 07:17 Oxygen Delivery Method Room Air 03/24/24 07:17 Temperature 98.4 F 03/24/24 07:17 Pulse Rate 93 H 03/24/24 07:17 Respiratory Rate 28 H 03/24/24 07:17 Blood Pressure 140/82 03/24/24 07:38 Pulse Oximetry 96 03/24/24 08:00 Oxygen Delivery Method Room Air 03/24/24 08:00 Medical Decision Making MDM Narrative Medical decision making narrative: Her workup is negative including chest x-ray as well as COVID and influenza test. She is not . She was given IV fluids and Zofran and Toradol. She was informed that she has a viral illness and the antibiotics will not help. Treatment diagnosis and follow-up were discussed with the patient. Differential Diagnosis Differential Diagnosis: COVID, influenza, pneumonia, viral illness Lab Data Lab results reviewed: Yes I reviewed the patient's lab results Labs: Lab Results 03/24/24 03/24/24 Range/Units 05:45 07:45 WBC 5.2 (4.0-11.0) 10^3/uL RBC 4.56 (4.20-5.40) 10^6/uL Hgb 10.9 L (12.0-16.0) g/dL Hct 34.7 L (36.0-48.0) % MCV 76.1 L (81.0-99.0) fL MCH 23.9 L (26.7-34.0) pg MCHC 31.4 (29.9-35.2) g/dL RDW 17.2 H (11.0-15.0) % Plt Count 421 (150-450) 10^3/uL MPV 10.5 (9.5-13.5) fL Neut % (Auto) 55.4 (43.0-75.0) % Lymph % (Auto) 35.5 (20.5-60.0) % Jackson % (Auto) 7.7 (1.7-12.0) % Eos % (Auto) 0.4 L (0.9-7.0) % Baso % (Auto) 0.8 (0.2-2.0) % Neut # (Auto) 2.9 (1.4-6.5) 10^3/uL Lymph # (Auto) 1.8 (1.2-3.8) 10^3/uL Jackson # (Auto) 0.4 (0.3-0.8) 10^3/uL Eos # (Auto) 0.0 (0.0-0.7) 10^3/uL Baso # (Auto) 0.0 (0.0-0.1) 10^3/uL Abs Immat Gran (auto) 0.01 (0.00-0.03) 10^3/uL Imm/Tot Granulo (auto) 0.2 (0.0-0.5) % Sodium 141 (136-145) mmol/L Potassium 3.3 L (3.5-5.1) mmol/L Chloride 102 (98-107) mmol/L Carbon Dioxide 25.3 (21.0-32.0) mmol/L Anion Gap 17.0 BUN 9.0 (7.0-18.0) mg/dL Creatinine 1.25 H (0.55-1.02) mg/dL Est GFR ( Amer) >60 (>=60 mL/min/1.73m^2) Est GFR (Non-Af Amer) 53 L (>=60 mL/min/1.73m^2) BUN/Creatinine Ratio 7.2 Glucose 96 (74-106) mg/dL Calcium 9.0 (8.5-10.1) mg/dL Serum HCG, Qual Negative (NEGATIVE) Influenza Type A Ag Negative Influenza Type B Ag Negative SARS-CoV-2 Ag (CV2AG) Negative (NEGATIVE) Imaging Data Chest x-ray: Radiologist's impression: ITS Impressions Chest X-Ray 03/24/24 07:33 IMPRESSION: Unremarkable AP erect portable chest radiograph. Electronically authenticated by: SVETLANA MACDONALD Date: 03/24/2024 08:11 Discharge Plan Discharge Chief Complaint: Nausea/Vomiting/Diarrhea Clinical Impression: Viral illness Patient Disposition: Home, Self-Care Time of Disposition Decision: 08:43 Condition: Good Mode of Transportation: Private Vehicle Prescriptions / Home Meds: No Action dicyclomine 20 mg tablet 20 mg PO QID PRN (Reason: abdominal pain) Qty: 10 0RF ondansetron 4 mg tablet,disintegrating 4 mg PO Q8H PRN (Reason: nausea and vomiting) 3 Days Qty: 10 0RF Print Language: Kyrgyz Instructions: Viral Syndrome (ED) Referrals: Physician,Non-Staff, MD [Primary Care Provider] - 1 week
[2024-03-24 07:38] VITALS: BP 140/82
[2024-03-24 07:53] LABS: Basophils Percent Auto 0.8 % (0.2-2.0); Eosinophils Percent Auto 0.4 % (0.9-7.0); Hematocrit 34.7 % (36.0-48.0); Hemoglobin 10.9 g/dL (12.0-16.0); Immature Granulocytes Abs Auto 0.01 10^3/uL (0.00-0.03); Immature Granulocytes Pct Auto 0.2 % (0.0-0.5); Lymphocytes Absolute Auto 1.8 10^3/uL (1.2-3.8); Lymphocytes Percent Auto 35.5 % (20.5-60.0); Mean Corpuscular HGB Conc 31.4 g/dL (29.9-35.2); Mean Corpuscular Hemoglobin 23.9 pg (26.7-34.0); Mean Corpuscular Volume 76.1 fL (81.0-99.0); Mean Platelet Volume 10.5 fL (9.5-13.5); Monocytes Absolute Auto 0.4 10^3/uL (0.3-0.8); Monocytes Percent Auto 7.7 % (1.7-12.0); Neutrophils Absolute Auto 2.9 10^3/uL (1.4-6.5); Neutrophils Percent Auto 55.4 % (43.0-75.0); Platelet Count 421 10^3/uL (150-450); Red Blood Count 4.56 10^6/uL (4.20-5.40); Red Cell Distribution Width 17.2 % (11.0-15.0); White Blood Count 5.2 10^3/uL (4.0-11.0)
[2024-03-24] MEDS: ONDANSETRON PF 4 MG/2 ML VIAL IV (07:55)
[2024-03-24] MEDS: 0.9 % SODIUM CHLORIDE 1,000 ML 1000 ML IV (07:55)
[2024-03-24 08:00] VITALS: O2SAT 96
[2024-03-24 08:05] LABS: BUN Creatinine Ratio 7.2; Carbon Dioxide 25.3 mmol/L (21.0-32.0); Chloride 102 mmol/L (98-107); Estimated GFR (African America >60 (>=60 mL/min/1.73m^2); Estimated GFR (Non-African Ame 53 (>=60 mL/min/1.73m^2); Glucose 96 mg/dL (74-106); Potassium 3.3 mmol/L (3.5-5.1); Sodium 141 mmol/L (136-145)
[2024-03-24 08:13] LABS: Influenza Virus A Antigen Negative; Influenza Virus B Antigen Negative; Internal Control Within Normal Limits; SARS-CoV-2 Ag NEGATIVE (NEGATIVE)
[2024-03-24 08:33] LABS: HCG Qualitative NEGATIVE (NEGATIVE); Internal Control Within Normal Limits
[2024-03-24] MEDS: KETOROLAC TROMETHAMINE 30 MG/ML VIAL IVP (09:05)
[2024-03-24 09:32] VITALS: BP 157/97; PULSE 60; O2SAT 100
== END 2024-03-24 09:40 | disposition home or self-care (01) ==
PROVIDERS: Emergency Provider Emergency Medicine
DX: B34.9 Viral infection, unspecified (principal)
CPT/HCPCS: 36415; 71045; 80048; 84703; 85025; 87804; 87811; 96361; 96374; 96375; 99284; J1885; J2405

== ENCOUNTER 2024-09-23 00:22 | Emergency (ER) | payer OTHER, SELFPAY ==
[2024-09-23 00:53] VITALS: BP 151/97; PULSE 97; TEMP 36.9; O2SAT 98; BMI 36.5
[2024-09-23 01:09] LABS: HCG Qualitative Urine* POSITIVE (NEGATIVE)
[2024-09-23 01:16] LABS: Glucose Urine UA NEGATIVE (NEGATIVE)
--- NOTE | 2024-09-23 01:39 | PC.NURSE ---
this patient states i think something coming out of my vagina onset today
--- NOTE | 2024-09-23 02:31 | ED.GENADUL1 ---
HPI HPI - General Adult General Chief complaint: Urogenital-Female Stated complaint: FEELS LIKE VAGINA IS FALLING OUT Time Seen by Provider: 09/23/24 02:07 Source: patient Mode of arrival: walk-in Limitations: no limitations History of Present Illness HPI narrative: patient states she was on BCP in the past but stop them. Has remained sexually active. LMP 06/2024. Asymptomatic. after using the restroom and then wiping to clean herself she felt like there was something hard in her vaginal orifice and she came in . no vaginal discharge or pain. No urinary symptoms Related Data Home Medications ?Medication ?Instructions ?Recorded ?Confirmed No Known Home Medications 09/23/24 09/23/24 Allergies Allergy/AdvReac Type Severity Reaction Status Date / Time No Known Drug Allergies Allergy Verified 09/23/24 00:53 Opioid HPI Opioid Management Most Recent Opioid Data: Last Pain Scale 5 03/24/24, 09:05 Review of Systems ROS Status of ROS 10 or more systems reviewed and unremarkable except as noted in history and below PFSH PFSH Social History Little interest or pleasure in doing things: not at all Feeling down, depressed, or hopeless: not at all Exam Constitutional Vital Signs, click to edit/add: Last Vital Signs Temp 98.5 F 09/23/24 00:53 Pulse 97 H 09/23/24 00:53 Resp 19 09/23/24 00:53 BP 151/97 H 09/23/24 00:53 Pulse Ox 98 09/23/24 00:53 O2 Del Method Room Air 09/23/24 00:53 Common normals: no apparent distress, average body habitus, oriented x3, no limitations, healthy appearing, alert and well nourished [facility] Common normals: normocephalic and head/scalp atraumatic Eye Common normals: PERRL and EOMs intact bilaterally Respiratory Common normals: normal respiratory effort, no retractions, no use of accessory muscles and clear to auscultation bilaterally Cardio Common normals: regular rate, regular rhythm, S1 normal heart sound and S2 normal heart sound GI Common normals: Normal to inspection, nondistended, normoactive bowel sounds present, soft to palpation and non-tender Extremity Common normals: normal to inspection and full ROM Neuro Common normals: oriented x3, CN's II-XII intact bilaterally and moves all extremities Psych Appearance: grossly normal Course Vital Signs Vital signs: Vital Signs Temperature 98.5 F 09/23/24 00:53 Pulse Rate 97 H 09/23/24 00:53 Respiratory Rate 19 09/23/24 00:53 Blood Pressure 151/97 H 09/23/24 00:53 Pulse Oximetry 98 09/23/24 00:53 Oxygen Delivery Method Room Air 09/23/24 00:53 Temperature 98.5 F 09/23/24 00:53 Pulse Rate 97 H 09/23/24 00:53 Respiratory Rate 19 09/23/24 00:53 Blood Pressure 151/97 H 09/23/24 00:53 Pulse Oximetry 98 09/23/24 00:53 Oxygen Delivery Method Room Air 09/23/24 00:53 Medical Decision Making MDM Narrative Medical decision making narrative: patient presents complaining of sensation that her vagina if coming out. Labs demonstrate positive . Abdominal exam is normal and not gravid. No findings on palpation of her abdomen of . Urine preg positive. Speculum exam with immediate visualization of the cervix. ? partial uterine prolapse. Patient informed of the findings and possible diagnosis and discharged home to follow up with her [employer] Lab Data Labs: Lab Results 09/23/24 09/23/24 Range/Units 01:02 02:40 WBC 6.6 (4.0-11.0) 10^3/uL RBC 3.88 L (4.20-5.40) 10^6/uL Hgb 9.9 L (12.0-16.0) g/dL Hct 30.1 L (36.0-48.0) % MCV 77.6 L (81.0-99.0) fL MCH 25.5 L (26.7-34.0) pg MCHC 32.9 (29.9-35.2) g/dL RDW 15.3 H (11.0-15.0) % Plt Count 357 (150-450) 10^3/uL MPV 10.4 (9.5-13.5) fL Neut % (Auto) 51.3 (43.0-75.0) % Lymph % (Auto) 35.9 (20.5-60.0) % Murray % (Auto) 11.1 (1.7-12.0) % Eos % (Auto) 0.8 L (0.9-7.0) % Baso % (Auto) 0.6 (0.2-2.0) % Neut # (Auto) 3.4 (1.4-6.5) 10^3/uL Lymph # (Auto) 2.4 (1.2-3.8) 10^3/uL Murray # (Auto) 0.7 (0.3-0.8) 10^3/uL Eos # (Auto) 0.1 (0.0-0.7) 10^3/uL Baso # (Auto) 0.0 (0.0-0.1) 10^3/uL Abs Immat Gran (auto) 0.02 (0.00-0.03) 10^3/uL Imm/Tot Granulo (auto) 0.3 (0.0-0.5) % Urine Color Yellow (YELLOW) Urine Clarity Clear (CLEAR) Urine pH 6.0 (5.0-9.0) Ur Specific Whitman >=1.030 A (1.005-1.025) Urine Protein 30 A (NEG/TRACE) mg/dL Urine Glucose (UA) Negative (NEGATIVE) mg/dL Urine Ketones Trace A (NEGATIVE) mg/dL Urine Occult Blood Negative (NEGATIVE) Urine Nitrite Negative (NEGATIVE) Urine Bilirubin Negative (NEGATIVE) Urine Urobilinogen 0.2 (0.2-1.0) EU/dL Ur Leukocyte Esterase Negative (NEGATIVE) Urine HCG, Qual Positive A (NEGATIVE) Discharge Plan Discharge Chief Complaint: Urogenital-Female Clinical Impression: Incomplete uterine prolapse, Patient Disposition: Home, Self-Care Prescriptions / Home Meds: No Action No Known Home Medications Print Language: [place] Instructions: (ED), Uterine Prolapse (ED) Additional Instructions: follow up with your [employer] this week or early next week Referrals: Physician,Non-Staff, MD [Primary Care Provider] - 1 week
[2024-09-23 02:46] LABS: Hematocrit 30.1 % (36.0-48.0); Hemoglobin 9.9 g/dL (12.0-16.0); Immature Granulocytes Abs Auto 0.02 10^3/uL (0.00-0.03); Immature Granulocytes Pct Auto 0.3 % (0.0-0.5); Lymphocytes Absolute Auto 2.4 10^3/uL (1.2-3.8); Mean Corpuscular HGB Conc 32.9 g/dL (29.9-35.2); Mean Corpuscular Hemoglobin 25.5 pg (26.7-34.0); Mean Corpuscular Volume 77.6 fL (81.0-99.0); Platelet Count 357 10^3/uL (150-450); Red Blood Count 3.88 10^6/uL (4.20-5.40); White Blood Count 6.6 10^3/uL (4.0-11.0)
[2024-09-23 03:22] LABS: Anion Gap 13.0; Blood Urea Nitrogen 13.0 mg/dL (7.0-18.0); Calcium 9.2 mg/dL (8.5-10.1); Carbon Dioxide 26.0 mmol/L (21.0-32.0); Chloride 102 mmol/L (98-107); Estimated GFR (African America >60 (>=60 mL/min/1.73m^2); Estimated GFR (Non-African Ame >60 (>=60 mL/min/1.73m^2); Glucose 95 mg/dL (74-106); Potassium 4.0 mmol/L (3.5-5.1); Sodium 137 mmol/L (136-145)
== END 2024-09-23 03:30 | disposition home or self-care (01) ==
PROVIDERS: Emergency Provider Internal Medicine
DX: O34.5 Maternal care for other abnormalities of gravid uterus (principal); Z3A.00 Weeks of gestation of pregnancy not specified
CPT/HCPCS: 36415; 80048; 81003; 84702; 84703; 85025; 99285